=== PATIENT | male | born 1965 | race Hispanic/Latino ===

== ENCOUNTER 2024-09-06 03:01 | Emergency (ER) | payer SELFPAY ==
--- NOTE | 2024-09-06 03:32 | EDPHYS ---
Physician Documentation [facility] Name: Chu Nye Jr Age: 59 yrs Sex: Male : 1965 Arrival Date: 09/06/2024 Time: 03:01 Bed 7 Private MD: ED Physician Nima Mathews HPI: 09/06 03:39 This 59 yrs old Male presents to ER via Ambulatory with complaints of Nose rt Bleed. 03:39 Patient presents to the ED with epistaxis since about 1. He present tissue and there, rt does not notice any current bleeding. Patient was reports history of hypertension, is been off of his amlodipine 10 mg for quite some time. Denies chest pain, shortness of breath with acute complaint, symptoms are moderate severity, no other aggravating alleviating factors.. Historical: - Allergies: 03:24 No Known Allergies; vc1 - Home Meds: 03:24 lisinopril 10 mg Oral tablet daily [Active]; vc1 - PMHx: 03:24 Hypertensive disorder; vc1 - PSHx: 03:24 None; vc1 - Immunization history:: Client reports having NOT received the Covid vaccine. - Infectious Disease History:: Denies. - Social history:: Smoking status: Patient reports the use of cigarette tobacco products, smokes one-half pack cigarettes per day. - Family history:: not pertinent. ROS: 03:39 Constitutional: Negative for fever, chills, and weight loss, Cardiovascular: Negative rt for chest pain, palpitations, and edema, Respiratory: Negative for shortness of breath, cough, wheezing, and pleuritic chest pain, Abdomen/GI: Negative for abdominal pain, nausea, vomiting, diarrhea, and constipation, MS/Extremity: Negative for injury and deformity, Skin: Negative for injury, rash, and discoloration, 03:39 ENT: Positive for nose bleed, Exam: 03:39 Constitutional: This is a well developed, well nourished patient who is awake, alert, rt and in no acute distress. Head/Face: Normocephalic, atraumatic. Chest/axilla: Normal chest wall appearance and motion. Nontender with no deformity. No lesions are appreciated. Cardiovascular: Regular rate and rhythm with a normal S1 and S2. No gallops, murmurs, or rubs. Normal PMI, no JVD. No pulse deficits. Respiratory: Lungs have equal breath sounds bilaterally, clear to auscultation and percussion. No rales, rhonchi or wheezes noted. No increased work of breathing, no retractions or nasal flaring. Abdomen/GI: Soft, non-tender, with normal bowel sounds. No distension or tympany. No guarding or rebound. No evidence of tenderness throughout. Skin: Warm, dry with normal turgor. Normal color with no rashes, no lesions, and no evidence of cellulitis. MS/ Extremity: Pulses equal, no cyanosis. Neurovascular intact. Full, normal range of motion. Neuro: Awake and alert, GCS 15, oriented to person, place, time, and situation. Cranial nerves II-XII grossly intact. Motor strength 5/5 in all extremities. Sensory grossly intact. Cerebellar exam normal. Normal gait. 03:39 ENT: No active bleeding to either nare. Vital Signs: 03:19 BP 210 / 114; Pulse 66; Resp 14; Temp 97.9; Pulse Ox 98% ; Weight 90.72 kg; Height 5 vc1 ft. 10 in. ; Pain 0/10; 03:38 BP 212 / 106; Pulse 67; Resp 15; Pulse Ox 98% ; cp4 03:19 Body Mass Index 28.70 (90.72 kg, 177.8 cm) vc1 03:19 Pain Scale: Adult vc1 MDM: 03:11 Medical Screening Exam initiated rt 03:39 Differential diagnosis: Epistaxis, hypertension. Data reviewed: vital signs, nurses rt notes. Test considered but Not performed: Other Details Patient is hypertensive, vital signs otherwise unremarkable, no active bleeding, no chest pain, other signs of endorgan dysfunction, he does have a known history of hypertension, is been off of his medications. These were refilled for him. As are no signs of endorgan dysfunction, no further workup is indicated at this time, he is stable for outpatient care, was instructed to follow-up with primary as an outpatient.. Care significantly affected by the following chronic conditions: Hypertension. Counseling: I had a detailed discussion with the patient and/or guardian regarding the historical points, exam findings, and any diagnostic results supporting the discharge/admit diagnosis, the presence of at least one elevated blood pressure reading (>120/80) during this emergency department visit, the need for outpatient follow up, to return to the emergency department if symptoms worsen or persist or if there are any questions or concerns that arise at home. Response to treatment: the patient's symptoms have markedly improved after treatment. Administered Medications: 03:19 Drug: amLODIPine PO 10 mg PO once Route: PO; cp4 03:41 Follow up: Response: No adverse reaction cp4 Disposition Summary: 09/06/24 03:31 Discharge Ordered Notes: Location: Home rt Problem: new rt Symptoms: have improved rt Condition: Stable rt Diagnosis - Epistaxis rt - Essential (primary) hypertension rt Followup: rt - With: Private Physician - When: 2 - 3 days - Reason: Discharge Instructions: - Discharge Summary Sheet rt - Nosebleed, Adult rt - Hypertension, Adult rt Forms: - Medication Reconciliation Form rt - Antibiotic Education rt - Prescription Opioid Use rt - Patient Portal Instructions rt - Leadership Thank You Letter rt Prescriptions: - amlodipine 10 mg Oral tablet - take 1 tablet ORAL route daily; 30 tablet; Refills: 0, Product Selection rt Permitted Signatures: Marita Oliveira RN RN vc1 Nima Mathews MD MD rt Chery Godfrey cp4
--- NOTE | 2024-09-06 03:32 | ER ---
Nurse's Notes [facility] Name: Chu Nye Jr Age: 59 yrs Sex: Male : 1965 Arrival Date: 09/06/2024 Time: 03:01 Bed 7 Private MD: Diagnosis: Epistaxis;Essential (primary) hypertension Presentation: 09/06 03:19 Chief complaint: Patient states: woke up around 0130 with a nose bleed, happened in the vc1 past when blood pressure was up. Out of blood pressure medication. Coronavirus screen: Client denies travel out of the [place] in the last 14 days. At this time, the client does not indicate any symptoms associated with coronavirus-19. Ebola Screen: Patient negative for fever greater than or equal to 101.5 degrees Fahrenheit, and additional compatible Ebola Virus Disease symptoms Patient denies exposure to infectious person. Patient denies travel to an Ebola-affected area in the 21 days before illness onset. No symptoms or risks identified at this time. Initial Sepsis Screen: Does the patient meet any 2 criteria? No. Patient's initial sepsis screen is negative. Does the patient have a suspected source of infection? No. Patient's initial sepsis screen is negative. Risk Assessment: Do you want to hurt yourself or someone else? Patient reports no desire to harm self or others. Onset of symptoms was September 06, 2024. Care prior to arrival: None. Activity prior to arrival: None. Mechanism of Injury: No Mechanism of Injury. Transition of care: patient was not received from another setting of care. 03:19 Method Of Arrival: Ambulatory vc1 03:19 Acuity: ELLIE 4 vc1 Triage Assessment: 03:25 General: Appears in no apparent distress. comfortable, Behavior is calm, cooperative, vc1 appropriate for age. Pain: Denies pain. EENT: Nares dry blood to left nare. Neuro: Level of Consciousness is awake, alert, obeys commands, Oriented to person, place, time, situation, Appropriate for age. Cardiovascular: Capillary refill < 3 seconds Patient's skin is warm and dry. Respiratory: Airway is patent Respiratory effort is even, unlabored, Respiratory pattern is regular, symmetrical. GI: Abdomen is flat, non-distended. : No deficits noted. No signs and/or symptoms were reported regarding the genitourinary system. Derm: Skin is intact, is healthy with good turgor, Skin is dry, Skin is normal, Skin temperature is warm. Musculoskeletal: Circulation, motion, and sensation intact. Range of motion: intact in all extremities. Historical: - Allergies: 03:24 No Known Allergies; vc1 - Home Meds: 03:24 lisinopril 10 mg Oral tablet daily [Active]; vc1 - PMHx: 03:24 Hypertensive disorder; vc1 - PSHx: 03:24 None; vc1 - Immunization history:: Client reports having NOT received the Covid vaccine. - Infectious Disease History:: Denies. - Social history:: Smoking status: Patient reports the use of cigarette tobacco products, smokes one-half pack cigarettes per day. - Family history:: not pertinent. Screenin:27 [facility] ED Fall Risk Assessment (Adult) History of falling in the last 3 months, vc1 including since admission No falls in past 3 months (0 pts) Confusion or Disorientation No (0 pts) Intoxicated or Sedated No (0 pts) Impaired Gait No (0 pts) Mobility Assist Device Used No (0 pt) Altered Elimination No (0 pt) Score/Fall Risk Level 0 - 2 = Low Risk Oriented to surroundings, Maintained a safe environment, Educated pt \T\ family on fall prevention, incl call for assistance when getting out of bed. Abuse screen: Denies threats or abuse. Nutritional screening: No deficits noted. Tuberculosis screening: No symptoms or risk factors identified. Assessment: 03:39 General: Appears in no apparent distress. comfortable, Behavior is calm, cooperative, cp4 appropriate for age. Pain: Denies pain. Neuro: Level of Consciousness is awake, alert, obeys commands, Oriented to person, place, time, situation. Cardiovascular: Patient's skin is warm and dry. Respiratory: Airway is patent Respiratory effort is even, unlabored. GI: No signs and/or symptoms were reported involving the gastrointestinal system. : No signs and/or symptoms were reported regarding the genitourinary system. EENT: Reports nosebleed. Derm: No signs and/or symptoms reported regarding the dermatologic system. Musculoskeletal: No signs and/or symptoms reported regarding the musculoskeletal system. Vital Signs: 03:19 BP 210 / 114; Pulse 66; Resp 14; Temp 97.9; Pulse Ox 98% ; Weight 90.72 kg; Height 5 vc1 ft. 10 in. ; Pain 0/10; 03:38 BP 212 / 106; Pulse 67; Resp 15; Pulse Ox 98% ; cp4 03:19 Body Mass Index 28.70 (90.72 kg, 177.8 cm) vc1 03:19 Pain Scale: Adult vc1 ED Course: 03:08 Patient arrived in ED. gm2 03:08 Nima Mathews MD is Attending Physician. rt 03:20 Chery Godfrey is Primary Nurse. cp4 03:24 Triage completed. vc1 03:25 Arm band placed on right wrist. vc1 03:27 Patient has correct armband on for positive identification. Bed in low position. Pulse vc1 ox on. NIBP on. 03:28 Provided Education on: blood pressure medication. vc1 03:39 No provider procedures requiring assistance completed. Patient did not have IV access cp4 during this emergency room visit. Administered Medications: 03:19 Drug: amLODIPine PO 10 mg PO once Route: PO; cp4 03:41 Follow up: Response: No adverse reaction cp4 Medication: 03:27 VIS not applicable for this client. vc1 Outcome: 03:31 Discharge ordered by . rt 03:39 Discharged to home ambulatory, cp4 03:39 Condition: stable 03:39 Discharge instructions given to patient, Instructed on discharge instructions, follow up and referral plans. medication usage, Demonstrated understanding of instructions, follow-up care, medications, Prescriptions given X 1, 03:40 Patient left the ED. cp4 Signatures: Marita Oliveira RN RN vc1 Nima Mathews MD MD rt Chery Godfrey cp4 Lelia Bahena gm2
[2024-09-06 05:08] VITALS: TEMP 97.9; O2SAT 98
[2024-09-06 05:09] VITALS: BP 212/106
== END 2024-09-06 03:40 | disposition home or self-care (01) ==
LOC: ER 03:01
DX: R04.0 Epistaxis (principal); I10 Essential (primary) hypertension; Z79.899 Other long term (current) drug therapy; F17.210 Nicotine dependence, cigarettes, uncomplicated
CPT/HCPCS: 99283